=== PATIENT | female | born 1945 | race Caucasian/White ===

== ENCOUNTER → 2016-05-11 | Outpatient (CLI) | payer MEDICARE, OTHER ==
--- NOTE | 2016-05-11 11:44 | BD ---
EXAMINATION TYPE: MG DEXA axial skeleton. DATE OF EXAM: 05/11/2016 9:02 AM CLINICAL HISTORY: Height: 64 inches Weight: 190 FRAX RISK QUESTIONS: Alcohol (3 or more units per day): no Family History (Parent hip fracture): no Glucocorticoids (More than 3mos): no (Ex: prednisone, prednisolone, methylprednisolone, dexamethasone, and hydrocortisone). History of Fracture in Adulthood: yes, forearm about 40 years ago; bilateral ribs about 10 years ago in [place] Secondary Osteoporosis: 1. Type 1 Diabetes: no 2. Hyperthyroidism: no 3. Menopause before 45: no 4. Malnutrition: no 5. Chronic liver disease: no Rheumatoid Arthritis: no Current Tobacco Use: no RISK FACTORS HISTORY OF: Family History of Osteoporosis: unsure Drink Alcohol: occasionally Active: yes Diet low in dairy products/other sources of calcium: at least one serving a day Postmenopausal woman: yes Take estrogen and/or progesterone medications: not now How long: age 49 for 5 years Lost more than 2 inches in height since high school: no Frequent falls: no Poor Health: no Hyperparathyroidism: no Adrenal Insufficiency: no MEDICATIONS: Prednisone or other steroids: no Thyroid Medications: no Osteoporosis Medications: not now Which medication: Fosamax How Long: several months Additional Medications: Lipitor, Plavix, multivitamin Additional History: endometrial CA EXAM MEASUREMENTS: Bone mineral densitometry was performed using the [employer] System. Bone mineral density as measured about the Lumbar spine is: ----- L1-L4(G/cm2): 1.212 T Score Values are as follows: ----- L2: -0.4 ----- L3: 1.2 ----- L4: 0.7 ----- L1-L4: 0.3 Bone mineral density has: Decreased -5.2% since study of: 04/25/2014 Bone mineral density about the R hip (g/cm2): 0.727 Bone mineral density about the L hip (g/cm2): 0.725 T Score values are as follows: -----R Neck: -2.2 -----L Neck: -2.3 -----R Intertrochanter: -1.5 -----L Intertrochanter: -1.6 Bone mineral density has: Increased 0.6% since study of: 02/18/201 IMPRESSION: Normal (Values between +1 and -1 indicate normal bone mass) lumbar Spine Osteopenia (T Score between -2.5 and -1 as noted by T score values Bilateral Hips There is slightly increased risk of fracture and the patient may be considered for treatment. Re-Screen 1-2 years. NOTE: T-SCORE=SD OF THE YOUNG ADULT MEAN.
--- NOTE | 2016-05-12 09:23 | MM ---
Reason for exam: screening (asymptomatic). Last mammogram was performed 1 year ago. History: Patient is postmenopausal and has history of endometrial cancer at age 32. Family history of breast cancer in 2 paternal aunts. Benign excisional biopsy of the right breast, 1991. Took hormonal contraceptives for 3 years beginning at age 21. Took progesterone for 5 years beginning at age 49. Physical Findings: A clinical breast exam by your physician is recommended on an annual basis and results should be correlated with mammographic findings. MG 3D Screening Mammo W/Cad Bilateral CC and MLO view(s) were taken. Prior study comparison: May 10, 2015, bilateral MG screening mammo w CAD. April 25, 2014, bilateral MG screening mammo w CAD. March 31, 2013, bilateral digital screening mammo w/CAD. There are scattered fibroglandular densities. Finding: There are typically benign vascular calcifications in the outer quadrant, posterior position of the left breast. Asymmetric breast tissue right upper aspect. There is no discrete abnormality. ASSESSMENT: Benign, BI-RAD 2 RECOMMENDATION: Routine screening mammogram of both breasts in 1 year.
== END ==
LOC: RADMAMWWP 08:19
PROVIDERS: ATTEND Internal Medicine
DX: Z12.31 Encounter for screening mammogram for malignant neoplasm of breast (principal); M85.88 Other specified disorders of bone density and structure, other site; Z13.820 Encounter for screening for osteoporosis
CPT/HCPCS: 77080; 77063; G0202

== ENCOUNTER → 2017-01-12 | Outpatient (CLI) | payer MEDICARE, OTHER ==
--- NOTE | 2017-01-12 16:43 | CONS ---
CONSULTATION REASON FOR CONSULTATION: Chronic fatigue and tiredness. 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 She retired approximately 7-8 years ago. Denies having any recent weight gain. She had been discussing her fatigue and some degree of sleepiness with the primary care physician. This brought around the possibility of having obstructive sleep apnea. She tells me that during outpatient procedures under conscious sedation she has been told that she desaturates and she quit breathing easily. She is currently . She snores yet is not sure if she quits breathing at night. Her current Ekalaka Score is at 10. She has a slight overbite with a Mallampati class 3. She goes to bed at around 11:00 p.m. and wakes up somewhere between 7-8 am in the morning. She used to have problems with sleep walking or sleep talking, many years back and along with symptoms of night terrors and the last episode that occurred was 25 years ago and she has not had anything since. Note that the patient is currently on Zoloft which was started after she lost her . No sleep paralysis. No hallucinations. No cataplexy. She has some low degree of depression. PAST MEDICAL HISTORY: Coronary disease, hyperlipidemia and depression. PAST SURGICAL HISTORY: Includes cardiac catheterization, stenting back in 2005 and 2007, hysterectomy, breast biopsy, cataract surgery. DRUG ALLERGIES: PENICILLIN. OUTPATIENT MEDICATION LIST: Includes Plavix 75 mg p.o. daily, Zoloft 10 mg p.o. daily. Lipitor 10 mg p.o. daily. Aspirin 325 mg p.o. daily. Multiple vitamin. SOCIAL HISTORY: The patient is a nonsmoker. No history of alcohol. No history of IV drugs. Retired nurse. FAMILY HISTORY: Negative for sleep apnea. Mother had coronary disease. Father had diabetes mellitus and coronary artery disease. REVIEW OF SYSTEMS: 12-point review of system was done. Positive findings are mentioned above in the history of present illness. Of significance is the absence of any grinding of the teeth. No panic attacks. No palpitation. No heartburn. No waking up choking or gasping for air. No nocturia. No insomnia at this point. PHYSICAL EXAMINATION: BP is 149/69, pulse 68, respirations 16, temperature 98.3, saturation 98% on room air. Weight is 196. Height is 5 feet 4 inches neck size 14-1/2 inches. GENERAL APPEARANCE: Calm, comfortable. HEENT: Short neck, crowded posterior pharynx. Mallampati class 3, overbite. LUNGS: Clear to auscultation. HEART: Sounds regular rhythm. Normal S1, S2. No S3. No murmurs. ABDOMEN: Soft, nontender. No organomegaly. EXTREMITIES: No edema. No cyanosis or clubbing. NEUROLOGIC: Alert and oriented x3. There is no focal neurological deficits. PSYCHIATRIC: Negative for anxiety or depression or claustrophobia at this point. IMPRESSION: 1. Obstructive sleep apnea clinically suspected currently under investigation based on the above-mentioned symptomatology. 2. Chronic fatigue more than sleepiness, current Ekalaka Score is 10. 3. Retired nurse. 4. Coronary artery disease with previous coronary stenting. 5. Hyperlipidemia. 6. History of depression. PLAN: 1. Encourage weight loss. 2. Implement good sleep hygiene measures. 3. Continue Zoloft. 4. Proceed with a sleep study looking for any significant sleep breathing disorder that may warrant further treatment. MMODL / IJN: [id number] /
== END | disposition home or self-care (01) ==
LOC: SLEEP 13:05
PROVIDERS: ATTEND Internal Medicine Critical Care Medicine
DX: G47.33 Obstructive sleep apnea (adult) (pediatric) (principal); I25.10 Atherosclerotic heart disease of native coronary artery without angina pectoris; E78.5 Hyperlipidemia, unspecified; R53.82 Chronic fatigue, unspecified; Z88.0 Allergy status to penicillin
CPT/HCPCS: 99204; 99211

== ENCOUNTER → 2017-04-27 | Outpatient (CLI) | payer MEDICARE, OTHER ==
--- NOTE | 2017-04-27 11:12 | PN ---
PROGRESS NOTE Ruth is 71 years old and she was diagnosed having severe symptomatic obstructive sleep apnea with AHI of 76.5, and she had also severe nocturnal oxygen desaturation. Her sleep was very much fragmented. She was very sleepy and tired during the day. Based on that, she was given a CPAP titration and during which she was titrated to a CPAP pressure of 11 cm of water. Today, she is coming in for a followup and compliance check. She is utilizing CPAP with the pressure of 11 cm of water. Her humidity level is at 4. Temperature of the tubings at 70 degrees. She is using an AirFit P10 medium- sized nasal pillows. She is benefitting from the treatment. She has seen significant improvement in sleep quality. She is sleeping much more comfortable and she is waking up alert and awake during the day and states that drowsiness and sleepiness is completely recovered. Based on the compliance data that was collected over the past 30 days, her compliance has been 100%. She has used the CPAP for more than 4 hours of 97% of the time. Average CPAP use is 7 hours and 52 minutes and her AHI is down to 2 while on treatment. No leaks around the mask and treatment has been essentially successful. She has no other complaints otherwise for now. She is implementing good sleep hygiene measures. She is trying to lose weight and her weight has been stable for now. REVIEW OF SYSTEMS: A 12-point review of system was done. No major sleepiness. No tiredness. No fatigue. No headaches, No morning headaches. No nausea or vomiting. No diarrhea. No abdominal pain. No dysuria, frequency or urgency. No chest pain. No cough or sputum production. No sleepwalking or sleeptalking. No restlessness in the lower extremities. No numbness or tingling in the legs. No anxiety. No depression. No claustrophobia. No other complaints otherwise. Her current vitals: BP is 146/66, pulse 60 respirations 16, temperature 97.7 saturation 99% on room air. Weight is 199. GENERAL APPEARANCE: She is calm, comfortable, in no acute distress. Head is atraumatic, normocephalic. Neck is supple. There is no JVD. There is no goiter or neck masses. She has a with Mallampati class IV. LUNGS: Clear to auscultation. HEART: Sounds regular rate and rhythm. Normal S1, S2. No S3, S4. No murmurs. ABDOMEN: Soft, nontender. No organomegaly. EXTREMITIES: No edema. No cyanosis or clubbing. NEUROLOGIC: The patient is alert and oriented x3. There is no focal neurological deficit. PSYCHIATRIC: Negative for anxiety or depression. SKIN: Negative for any ulcerations or wounds or cellulitis. IMPRESSION: 1. Severe symptomatic obstructive sleep apnea with successful treatment. The patient had an AHI of 76.5 at baseline consistent with severe disease and showed also severe sleep fragmentation and frequent nocturnal arousals and severe nocturnal oxygen desaturations, all improved with CPAP therapy. 2. Chronic hypersomnia improved. 3. Coronary artery disease. 4. Hypertension. 5. Hyperlipidemia. 6. Depression. PLAN: 1. Continue CPAP therapy at the same level of pressure. 2. Compliance data was checked. 3. The patient is benefitting from the treatment. 4. Encourage weight loss. 5. The patient utilizing [place] [employer]. 6. Continue same treatment. I will see him back in followup in a year's time earlier if needed. MMJOSHUAL / YAHIRN: [id number] /
== END | disposition home or self-care (01) ==
LOC: SLEEP 10:18
PROVIDERS: ATTEND Internal Medicine Critical Care Medicine
DX: G47.33 Obstructive sleep apnea (adult) (pediatric) (principal); I25.10 Atherosclerotic heart disease of native coronary artery without angina pectoris; I10 Essential (primary) hypertension; E78.5 Hyperlipidemia, unspecified; F32.9 Major depressive disorder, single episode, unspecified; Z99.89 Dependence on other enabling machines and devices

== ENCOUNTER → 2017-06-02 | Outpatient (CLI) | payer MEDICARE, OTHER ==
--- NOTE | 2017-06-02 10:45 | US ---
EXAMINATION TYPE: US abdomen complete DATE OF EXAM: 06/02/2017 COMPARISON: NONE CLINICAL HISTORY: 71-year-old female Chest pain R07.9, K83.9 Disease of biliary tract. Bloating, ches t pain, back pain Technique: Multiple sonographic images of the abdomen are obtained. FINDINGS: Liver Length: 16.3 cm Gallbladder Wall: 0.2 cm CBD: 0.5 cm Spleen: 9.4 cm Right Kidney: 10.7 x 3.9 x 4.3 cm Left Kidney: 11.5 x 5.0 x 3.7 cm Pancreas: Only a small portion of the pancreatic neck is seen. The remainder is obscured by bowel ga s Liver: Hypoechoic area visualized left lobe measuring 0.7 x 0.8 x 0.7 cm. There may be some posterio r through transmission. Slightly coarse and heterogeneous echotexture. Gallbladder: wnl Evidence for sonographic Espinosa's sign: No CBD: wnl as visualized, distal portion obscured by bowel gas Spleen: wnl Right Kidney: No hydronephrosis. Left Kidney: No hydronephrosis. Upper IVC: wnl Abd Aorta: Proximal portion obscured by bowel gas. Atherosclerotic changes visualized IMPRESSION: 1. Slightly coarsened echotexture of the liver. Correlate for nonspecific hepatocellular disease. 2. An indeterminate 7 mm hypoechoic lesion along the anterior left liver lobe. As there is suggestion of posterior through transmission, this could represent a mildly complex cyst. 6 month follow-up ult rasound recommended to reassess. If further characterization is desired at this time, liver MRI can b e performed.
--- NOTE | 2017-06-02 10:59 | ECHOS ---
STRESS ECHOCARDIOGRAM INDICATIONS: Chest pain. BASELINE HEART RATE: 54 BASELINE BLOOD PRESSURE: 130/60 MAXIMUM HEART RATE: 137 MAXIMUM BLOOD PRESSURE: 217/60 85% MPHR: 128 100% MPHR: 150 METS: 8.5 MAXIMUM STAGE REACHED: 3 TOTAL EXERCISE TIME: 7:00 CLINICAL INFORMATION: Patient walked for 7 minutes on a standard Aidan protocol and heart rate changed from 54 to 137 beats per minute. Resting blood pressure was 130/60 and went up to 217/60. EKG revealed inferolateral ST-segment depression which was quite significant without any associated symptoms of angina and there was no arrhythmia. By EKG criteria, this is a positive stress test with inferolateral ST-segment depression without subjective symptoms of angina and there was no arrhythmia. Baseline echo images revealed normal wall motion and wall thickening of all segments. At peak exercise, there was good augmentation of left anterior wall motion and wall thickening of all segments suggesting that there is no evidence of stress-induced ischemia on this study. IMPRESSION: 1. Fair exercise capacity with a positive stress test by EKG criteria without subjective symptoms of angina. 2. Normal stress echocardiogram without any evidence of stress-induced ischemia on the basis of stress echocardiogram. 3. Results were discussed with the patient and she will be followed up in the office. MMODL / IJN: [id number] /
== END | disposition home or self-care (01) ==
LOC: RADUSMAIN 09:01
PROVIDERS: ATTEND Internal Medicine
DX: R93.2 Abnormal findings on diagnostic imaging of liver and biliary tract (principal); K83.9 Disease of biliary tract, unspecified; R07.9 Chest pain, unspecified
CPT/HCPCS: 76700; 93017; 93350

== ENCOUNTER → 2017-07-26 | Outpatient (CLI) | payer MEDICARE, OTHER ==
--- NOTE | 2017-07-28 09:41 | MM ---
Reason for exam: screening (asymptomatic). Last mammogram was performed 1 year and 2 months ago. History: Patient is postmenopausal and has history of endometrial cancer at age 32. Family history of breast cancer in 2 paternal aunts. Benign excisional biopsy of the right breast, 1991. Took hormonal contraceptives for 3 years beginning at age 21. Took progesterone for 5 years beginning at age 49. Physical Findings: A clinical breast exam by your physician is recommended on an annual basis and results should be correlated with mammographic findings. MG 3D Screening Mammo W/Cad Bilateral CC and MLO view(s) were taken. Prior study comparison: May 11, 2016, bilateral MG 3d screening mammo w/cad. May 10, 2015, bilateral MG screening mammo w CAD. There are scattered fibroglandular densities. No significant changes when compared with prior studies. ASSESSMENT: Negative, BI-RAD 1 RECOMMENDATION: Routine screening mammogram of both breasts in 1 year.
== END | disposition home or self-care (01) ==
LOC: RADMAMWWP 07:39
PROVIDERS: ATTEND Internal Medicine
DX: Z12.31 Encounter for screening mammogram for malignant neoplasm of breast (principal)
CPT/HCPCS: 77063; 77067

== ENCOUNTER → 2018-04-26 | Outpatient (CLI) | payer MEDICARE ==
--- NOTE | 2018-04-26 16:54 | PN ---
PROGRESS NOTE Ruth is 72, coming in for an annual check regarding her RYLEE. The patient was diagnosed having severe RYLEE with an AHI of 76; this diagnosis was established a few years back. Since then, the patient gained around 10 pounds. She is currently using an AirFit P10 small nasal pillow and her CPAP is set at a pressure of 11 cm of water. She is known to have coronary artery disease and she has undergone previous coronary stenting and she is known to have hypertension. On today's evaluation, the patient has no specific complaints. She has been very compliant with her CPAP treatment over the past few years. On today's evaluation, her compliance data was checked, and the patient is averaging around 7.6 hours of CPAP use per night. Her CPAP use for more than 4 hours is above 90%. She is leaking around 23 L/minute and her AHI is down to 2.4 while on treatment. She is waking up refreshed. No naps during the day. No sleep fragmentation. No issues with the mask. The patient has a good mask seal for the time being. No other new-onset comorbidities. She is known to have coronary artery disease, hyperlipidemia, hypertension and history of depression which is currently inactive and stable. REVIEW OF SYSTEMS: Twelve-point review of systems was done. Positive findings were all mentioned above in the history of present illness. No recent weight gain. Overall she has gained around 10 pounds since her diagnosis. No nocturnal heartburn, chest pain or shortness of breath. No anxiety. No panic attacks. No claustrophobia. No neuropathy. No chronic pains for now. PHYSICAL EXAMINATION: BP is 147/56, pulse 64, respirations 16, temperature 97.9, saturation 97% on room air. Height is 5 feet 4 inches, weight 206, BMI 35.3. GENERAL APPEARANCE: Calm, comfortable. Head is atraumatic, normocephalic. NECK: Supple. Mallampati class IV. There is no goiter or neck masses. LUNGS: Clear to auscultation. Heart sounds are regular rate and rhythm. Normal S1, S2. No S3, S4. No murmurs. ABDOMEN: Soft, nontender. No organomegaly. EXTREMITIES: No edema. No cyanosis or clubbing. NEUROLOGIC: Alert and oriented x3. No focal neurological deficits. PSYCHIATRIC: Negative for anxiety or depression. IMPRESSION: 1. Severe obstructive sleep apnea with apnea/hypopnea index of 76, currently on CPAP pressure of 11. 2. Obesity with body mass index of 35.3. 3. Hypersomnia, recovered. The patient is successfully treated with CPAP. Her current Saxton score is down to 7. 4. Coronary artery disease with previous coronary artery stenting. 5. Hyperlipidemia. 6. Hypertension. 7. History of depression. PLAN: 1. Continue CPAP therapy at the same level of pressure of 11 cm of water. 2. Keep the patient on the same mask interface. The patient is utilizing an AirFit P10 small-sized mask. 3. New all-over supplies and mask and tubing, some filters. 4. CPAP machine was checked. The compliance data was checked. No need for any adjustments. Treatment is successful. See me back in a year's time. MMODL / IJN: [id number] /
== END | disposition home or self-care (01) ==
LOC: SLEEP 14:35
PROVIDERS: ATTEND Internal Medicine Critical Care Medicine
DX: G47.33 Obstructive sleep apnea (adult) (pediatric) (principal); I25.10 Atherosclerotic heart disease of native coronary artery without angina pectoris; I10 Essential (primary) hypertension; E78.5 Hyperlipidemia, unspecified; E66.9 Obesity, unspecified; Z95.5 Presence of coronary angioplasty implant and graft; Z68.35 Body mass index [BMI] 35.0-35.9, adult; Z99.89 Dependence on other enabling machines and devices; Z86.59 Personal history of other mental and behavioral disorders

== ENCOUNTER → 2018-05-02 | Outpatient (CLI) | payer MEDICARE ==
--- NOTE | 2018-05-02 16:10 | US ---
EXAMINATION TYPE: US duplex aorta DATE OF EXAM: 05/02/2018 COMPARISON: NONE CLINICAL HISTORY: R09.89 Other specified symptoms and signs. EXAM MEASUREMENTS: Abdominal Aorta: Proximal: obscured by bowel gas Mid: 1.7cm Distal: 1.6cm Bifurcation: obscured by bowel gas Patient of large body habitus. IMPRESSION: 1. Mid and distal portions of the abdominal aorta visualized appear unremarkable.
== END | disposition home or self-care (01) ==
LOC: RADUSWWP 12:14
PROVIDERS: ATTEND Internal Medicine
DX: R09.89 Other specified symptoms and signs involving the circulatory and respiratory systems (principal)
CPT/HCPCS: 93979

== ENCOUNTER → 2018-09-15 | Outpatient (CLI) | payer MEDICARE ==
--- NOTE | 2018-09-16 09:58 | MM ---
Reason for exam: screening (asymptomatic). Last mammogram was performed 1 year and 2 months ago. History: Patient is postmenopausal and has history of endometrial cancer at age 32. Family history of breast cancer in 2 paternal aunts. Benign excisional biopsy of the right breast, 1991. Took hormonal contraceptives for 3 years beginning at age 21. Took progesterone for 5 years beginning at age 49. Physical Findings: A clinical breast exam by your physician is recommended on an annual basis and results should be correlated with mammographic findings. MG 3D Screening Mammo W/Cad Bilateral CC and MLO view(s) were taken. Prior study comparison: July 26, 2017, bilateral MG 3d screening mammo w/cad. May 11, 2016, bilateral MG 3d screening mammo w/cad. The breast tissue is heterogeneously dense. This may lower the sensitivity of mammography. There are benign appearing vascular calcifications bilaterally. There is no discrete abnormality. ASSESSMENT: Benign, BI-RAD 2 RECOMMENDATION: Routine screening mammogram of both breasts in 1 year.
== END | disposition home or self-care (01) ==
LOC: RADMAMWWP 06:46
PROVIDERS: ATTEND Internal Medicine
DX: Z12.31 Encounter for screening mammogram for malignant neoplasm of breast (principal)
CPT/HCPCS: 77063; 77067

== ENCOUNTER → 2019-05-02 | Outpatient (CLI) | payer MEDICARE ==
--- NOTE | 2019-05-02 12:13 | XR ---
EXAMINATION TYPE: XR lumbar spine 2 or 3V DATE OF EXAM: 05/02/2019 CLINICAL HISTORY: Back pain for one week with no stated injury. TECHNIQUE: Frontal, lateral, and oblique images of the lumbar spine are obtained. COMPARISON: None FINDINGS: There are 5 lumbar type vertebral bodies identified. There is mild superior endplate verte bral body height loss of L3 with total vertebral body height loss of less than 5%. Remainder the vert ebral body heights are maintained of the lumbar spine. Multilevel facet arthropathy is seen. There is diffuse osseous demineralization. No malalignment. IMPRESSION: 1. Very mild superior endplate deformity with minimal vertebral body height loss of L3. This is a mil d age-indeterminate compression deformity with no prior studies available for comparison to determine chronicity. Correlate for point tenderness. 2. Mild to moderate multilevel degenerative disc disease of the lumbar spine and diffuse osseous opal neralization.
--- NOTE | 2019-05-02 12:22 | XR ---
EXAMINATION TYPE: XR cervical spine limited DATE OF EXAM: 05/02/2019 TECHNIQUE: Frontal, lateral and open mouth view of the cervical spine are obtained. HISTORY: R52 back pain COMPARISON: None FINDINGS: The cervical spine is visualized in its entirety from C1 through C6, it is satisfactory in alignment without evidence of acute fracture or dislocation. The pre-vertebral soft tissue appears within normal limits. The C1-C2 articulation is within normal limits on the open mouth view there ar e bridging anterior osteophytes at C4-C5, C5-C6 and C6-C7 with small anterior osteophyte at C3-C4. IMPRESSION: No acute fracture or malalignment is seen in the cervical spine. Moderate degenerative d isc disease of the cervical spine.
== END | disposition home or self-care (01) ==
LOC: RADXRMAIN 11:35
PROVIDERS: ATTEND Chiropractor
DX: M50.30 Other cervical disc degeneration, unspecified cervical region (principal); M51.36 Other intervertebral disc degeneration, lumbar region
CPT/HCPCS: 72040; 72100

== ENCOUNTER → 2020-02-19 | Outpatient (CLI) | payer MEDICARE ==
--- NOTE | 2020-02-19 10:03 | BD ---
EXAMINATION TYPE: Axial Bone Density DATE OF EXAM: 02/19/2020 COMPARISON: 05.12.2016 CLINICAL HISTORY: 74 YR OLD FEMALE......ICD-10 CODE: M81.0 OSTEOPOROSIS Height: 63.3 Weight: 197 FRAX RISK QUESTIONS: History of Fracture in Adulthood: YES RISK FACTORS HISTORY OF: FX OF LT FOOT, AN ADULT AND RIBS History of Wrist Fracture: YES, LT WRIST.... AN ADULT Postmenopausal woman: YES, AT ABOUT AGE 50 Take estrogen and/or progesterone medications: YES, ON AND OFF FOR ABOUT 3 YRS Hyperparathyroidism: NO Adrenal Insufficiency: NO MEDICATIONS: Additional Medications: ZOLOFT, STATIN FOR CHOLESTEROL, VIT D Additional History: CHOLESTEROL EXAM MEASUREMENTS: Bone mineral densitometry was performed using the [employer] System. Bone mineral density as measured about the Lumbar spine is: ----- L1-L4(G/cm2): 1.332 T Score Values are as follows: ----- L1: 0.3 ----- L2: 0.0 ----- L3: 2.2 ----- L4: 1.9 ----- L1-L4: 1.3 Bone mineral density has: Increased 8.5% since study of: 05.11.2017 Bone mineral density about the R hip (g/cm2): 0.848 Bone mineral density about the L hip (g/cm2): 0.859 T Score values are as follows: -----R Neck: -2.2 -----L Neck: -1.8 -----R Total: -1.3 -----L Total: -1.2 Bone mineral density has: Increased 2.8% since study of: 05.11.2017 FRAX%s: THERE IS A 19.6% CHANCE FOR A MAJOR OSTEOPOROTIC FX AND A 4.6% FOR HIP.....PROBABILITY FOR HIP IN 10 YRS TIME IMPRESSION: Osteopenia NOTE: T-SCORE=SD OF THE YOUNG ADULT MEAN.
--- NOTE | 2020-02-20 11:36 | MM ---
Reason for exam: screening (asymptomatic). Last mammogram was performed 1 year and 5 months ago. History: Patient is postmenopausal and has history of endometrial cancer at age 32. Family history of breast cancer in 2 paternal aunts. Benign excisional biopsy of the right breast, 1991. Took hormonal contraceptives for 3 years beginning at age 21. Took progesterone for 5 years beginning at age 49. Physical Findings: A clinical breast exam by your physician is recommended on an annual basis and results should be correlated with mammographic findings. MG 3D Screening Mammo W/Cad Bilateral CC and MLO view(s) were taken. Prior study comparison: September 15, 2018, bilateral MG 3d screening mammo w/cad. July 26, 2017, bilateral MG 3d screening mammo w/cad. The breast tissue is heterogeneously dense. This may lower the sensitivity of mammography. There are benign appearing vascular calcifications bilaterally. There is chronic nodularity in the right breast. There is no discrete abnormality. ASSESSMENT: Benign, BI-RAD 2 RECOMMENDATION: Routine screening mammogram of both breasts in 1 year.
== END | disposition home or self-care (01) ==
LOC: RADBDWWP 07:08
PROVIDERS: ATTEND Internal Medicine
DX: Z12.31 Encounter for screening mammogram for malignant neoplasm of breast (principal); M85.80 Other specified disorders of bone density and structure, unspecified site; M81.0 Age-related osteoporosis without current pathological fracture
CPT/HCPCS: 77063; 77067; 77080

== ENCOUNTER → 2020-04-15 | Outpatient (CLI) | payer MEDICARE | END | disposition home or self-care (01) | LOC: LABWHC1 15:37 | PROVIDERS: ATTEND Internal Medicine | DX: Z20.822 Contact with and (suspected) exposure to COVID-19 (principal) | CPT/HCPCS: U0003; C9803 ==

== ENCOUNTER → 2021-04-01 | Outpatient (CLI) | payer MEDICARE ==
--- NOTE | 2021-04-02 14:05 | MM ---
Reason for exam: screening (asymptomatic). Last mammogram was performed 1 year and 1 month ago. History: Patient is postmenopausal and has history of endometrial cancer at age 32. Family history of breast cancer in 2 paternal aunts. Benign excisional biopsy of the right breast, 1991. Took hormonal contraceptives for 3 years beginning at age 21. Took progesterone for 5 years beginning at age 49. Physical Findings: A clinical breast exam by your physician is recommended on an annual basis and results should be correlated with mammographic findings. MG 3D Screening Mammo W/Cad Bilateral CC and MLO view(s) were taken. Prior study comparison: February 19, 2020, bilateral MG 3d screening mammo w/cad. September 15, 2018, bilateral MG 3d screening mammo w/cad. The breast tissue is heterogeneously dense. This may lower the sensitivity of mammography. There is no discrete abnormality. ASSESSMENT: Negative, BI-RAD 1 RECOMMENDATION: Routine screening mammogram of both breasts in 1 year.
== END | disposition home or self-care (01) ==
LOC: RADMAMWWP 11:15
PROVIDERS: ATTEND Internal Medicine
DX: Z12.31 Encounter for screening mammogram for malignant neoplasm of breast (principal); Z78.0 Asymptomatic menopausal state; Z80.3 Family history of malignant neoplasm of breast
CPT/HCPCS: 77063; 77067

== ENCOUNTER → 2021-09-06 | Outpatient (CLI) | payer MEDICARE ==
--- NOTE | 2021-09-06 14:58 | MR ---
EXAMINATION TYPE: MR lumbar spine wo con DATE OF EXAM: 09/06/2021 COMPARISON: None HISTORY: Right leg weakness. Pain. FINDINGS: Lumbar vertebra show normal alignment. There is significant facet arthropathy at L4-5. There is devel opmentally small spinal canal and moderate spinal stenosis at L4-5. There is mild spinal stenosis at L3-4. There is multilevel lateral recess stenosis in the lumbar spine. There is slight depression of the superior endplate of L3 vertebra 15-20%. No significant edema. There is also some anterior wedgin g of T12 vertebra 15% without significant edema. There is no paraspinal mass. The upper sacroiliac joints are intact. IMPRESSION: There are mild compression fractures of L3 and T12 which are probably old. There is moderate spinal stenosis at L4-5 due to facet arthropathy and developmentally small spinal c anal. There is mild multilevel lumbar lateral recess stenosis due to facet arthropathy. Mild spinal s tenosis at L3-4.
== END | disposition home or self-care (01) ==
LOC: RADMRIMAIN 09:45
PROVIDERS: ATTEND Internal Medicine
DX: S32.030A Wedge compression fracture of third lumbar vertebra, initial encounter for closed fracture (principal); M48.061 Spinal stenosis, lumbar region without neurogenic claudication; M99.73 Connective tissue and disc stenosis of intervertebral foramina of lumbar region
CPT/HCPCS: 72148